=== PATIENT | female | born 1945 | race Caucasian/White ===

== ENCOUNTER 2016-03-06 13:18 | Emergency (ER) | payer MEDICARE, MEDICAID ==
[2016-03-06 13:32] VITALS: BP 155/55
--- NOTE | 2016-03-06 14:45 | UC ---
Throat Pain/Nasal Inocente HPI - HPI Summary HPI Summary: ONE WEEK OF PRODUCTIVE COUGH, FACIAL PRESSURE, YELLOW SECRETIONS. OCCASIONAL FEVER. COUGH THAT KEEPS HER UP AT NIGHT. FALL ON FACE, LAST WEDNESDAY, HAS YELLOWING BRUISES UNDER EYES. WOULD NOT LIKE EVALUATION FOR TRAUMA, ONLY COLD SYMPTOMS. - History of Current Complaint Chief Complaint: UCRespiratory Stated Complaint: COUGH,RUNNY NOSE,RUNNY EYES,SNEEZING Time Seen by Provider: 03/06/16 14:24 Hx Obtained From: Patient Onset/Duration: Gradual Onset, Lasting Weeks, Still Present Severity: Moderate Cough: Nonproductive Associated Signs & Symptoms: Positive: Sinus Discomfort, Nasal Discharge - Epiglottits Risk Factors Epiglottis Risk Factors: Negative - Allergies/Home Medications Allergies/Adverse Reactions: Allergies Allergy/AdvReac Type Severity Reaction Status Date / Time Dust Mite Extract Allergy Mild Sneezing Verified 03/06/16 13:24 Pepper Allergy Mild Sneezing Uncoded 03/06/16 13:24 Home Medications: Home Medications Glimepiride (NF) 5 mg PO DAILY 03/06/16 [History Confirmed 03/06/16] Levothyroxine TAB* [Synthroid TAB*] 100 mcg PO DAILY 03/06/16 [History Confirmed 03/06/16] Lisinopril [Zestril 10 MG-] 10 mg PO DAILY 03/06/16 [History Confirmed 03/06/16] Simvastatin TAB(NF) [Zocor(NF)] 20 mg PO DAILY 03/06/16 [History Confirmed 03/06] guaiFENesin ER TAB [Mucinex*] 600 mg PO BID PRN 03/06/16 [History Confirmed ] PMH/Surg Hx/FS Hx/Imm Hx Previously Healthy: Yes Endocrine History Of: Reports: Diabetes Denies: Thyroid Disease Cardiovascular History Of: Reports: Hypertension Denies: Cardiac Disorders Respiratory History Of: Denies: COPD, Asthma GI/ History Of: Denies: Ulcer Neurological History Of: Denies: CVA - Surgical History Surgical History: Yes Surgery Procedure, Year, and Place: Appendectomy, tubal ligation 177 - Family History Known Family History: Positive: Diabetes - Social History Occupation: Retired Lives: With Family Alcohol Use: None Substance Use Type: None Smoking Status (MU): Never Smoked Tobacco - Immunization History Most Recent Influenza Vaccination: 02/2016 Review of Systems Constitutional: Negative Skin: Negative Eyes: Negative ENT: Nasal Discharge Respiratory: Negative Cardiovascular: Negative Gastrointestinal: Negative Genitourinary: Negative Motor: Negative Neurovascular: Negative Musculoskeletal: Negative Neurological: Negative Psychological: Negative All Other Systems Reviewed And Are Negative: Yes Physical Exam Triage Information Reviewed: Yes Appearance: No Pain Distress, Well-Nourished, Ill-Appearing - MILD Vital Signs: Initial Vital Signs Temp 100.2 F 03/06/16 13:28 Pulse 74 03/06/16 13:28 Resp 20 03/06/16 13:28 BP 155/55 03/06/16 13:28 Pulse Ox 96 03/06/16 13:28 Vital Signs Reviewed: Yes Eye Exam: Normal Eyes: Positive: Conjunctiva Clear ENT: Positive: Hearing grossly normal, Pharynx normal, Nasal congestion, TM bulging, TM dull Neck exam: Normal Neck: Positive: Supple, Nontender, No Lymphadenopathy Respiratory Exam: Normal Respiratory: Positive: Chest non-tender, Lungs clear, Normal breath sounds, No respiratory distress Cardiovascular Exam: Normal Cardiovascular: Positive: RRR, No Murmur, Pulses Normal Abdominal Exam: Normal Abdomen Description: Positive: Nontender, No Organomegaly Musculoskeletal Exam: Normal Musculoskeletal: Positive: Strength Intact Neurological Exam: Normal Psychological Exam: Normal Psychological: Positive: Normal Response To Family Skin Exam: Normal Throat Pain/Nasal Course/Dx - Differential Dx/Diagnosis Differential Diagnosis/HQI/PQRI: Sinusitis, Tonsillitis, URI Provider Diagnoses: SINUSITIS Discharge - Discharge Plan Condition: Stable Disposition: HOME Prescriptions: Benzonatate CAP* [Tessalon CAP*] 100 mg PO TID PRN #15 cap PRN Reason: Cough DOXYcycline CAP(*) [DOXYcycline 100MG CAP(*)] 100 mg PO BID #20 cap Patient Education Materials: Sinusitis (ED) Referrals: Veronica Dorado DO [Primary Care Provider] -
== END 2016-03-06 14:47 | disposition home or self-care (01) ==
LOC: UCCORT 13:18
DX: J32.9 Chronic sinusitis, unspecified (principal); E11.9 Type 2 diabetes mellitus without complications; I10 Essential (primary) hypertension; Z91.048 Other nonmedicinal substance allergy status
CPT/HCPCS: 99212; G0463